=== PATIENT | female | born 1950 | race American Indian/Alaskan Native ===

== ENCOUNTER 2016-12-27 08:09 | Outpatient (CLI) | payer MEDICARE ==
[2016-12-27] MEDS ORDERED: XYLOCAINE TOPICAL 4% TP ONE (08:20)
[2016-12-27] MEDS ORDERED: XYLOCAINE 2% INFILTRATI ONE (09:27)
[2016-12-28] MEDS ORDERED: XYLOCAINE 2% INFILTRATI ONE (07:45)
[2016-12-28] MEDS ORDERED: XYLOCAINE TOPICAL 4% TP ONE (07:45)
== END 2016-12-27 08:10 | disposition home or self-care (01) ==
LOC: WOUND 08:09
PROVIDERS: ATTEND Nurse Practitioner
DX: L60.2 Onychogryphosis (principal); L03.031 Cellulitis of right toe; B37.2 Candidiasis of skin and nail; E66.9 Obesity, unspecified; I10 Essential (primary) hypertension; M19.90 Unspecified osteoarthritis, unspecified site; B35.1 Tinea unguium; J45.909 Unspecified asthma, uncomplicated; Z86.718 Personal history of other venous thrombosis and embolism; Z86.711 Personal history of pulmonary embolism; Z87.891 Personal history of nicotine dependence
CPT/HCPCS: 11750; G0463